=== PATIENT | male | born 1945 | race Caucasian/White ===

== ENCOUNTER → 2019-02-01 | Outpatient (CLI) | payer MEDICARE ==
[~2019-02-01] MED LIST: AMLO5; CEPH500 PO; TERA5
== END | disposition home or self-care (01) ==
LOC: LAB SHORT 11:15 → PLD 11:15
DX: C44.219 Basal cell carcinoma of skin of left ear and external auricular canal (principal)
CPT/HCPCS: 88305

== ENCOUNTER → 2019-03-02 | Outpatient (CLI) | payer MEDICARE | END | disposition home or self-care (01) | LOC: LAB SHORT 15:19 → PLD 15:19 | DX: C44.219 Basal cell carcinoma of skin of left ear and external auricular canal (principal) | CPT/HCPCS: 88305 ==

== ENCOUNTER 2020-04-05 09:40 | Day surgery (SDC) | payer MEDICARE, BC ==
[~2020-04-05] VITALS: Ht 180.3 cm; Wt 75.5 kg
[~2020-04-05 09:40] MED LIST changes: +Atenolol50 MG; +Diflucan100 MG PO; +HYDCHL25
--- NOTE | 2020-04-05 10:32 | NUR ---
04/05/20 1032 BERTHA CESAR ONE ATTEMPT BY AYANNA UNSUCCESSFUL ONE ATTEMPT BY RN SUCCESSFUL IN RFA PT TOW
--- NOTE | 2020-04-05 19:00 | NUR ---
04/05/201899 Odilia Portillo PT. COUGHING OFF & ON AFTER PROCEDURE. PER PT. & PT. DOES THIS AT HOME. LUNGS CLEAR.
--- NOTE | 2020-04-05 19:03 | NUR ---
04/05/201902 Odilia Portillo PER DR. OCAMPO ATTEMPTED WITH SAVORY 5 BUT UNSURE HOW FAR DIALATOR GOT. PT. WILL NEED TO BE RESCHEDULED WITH ANESTHESIA PER DR. OCAMPO.
== END 2020-04-05 12:58 | disposition home or self-care (01) ==
LOC: ORSCSDS 09:40
PROVIDERS: Internal Medicine Gastroenterology
PROC: 0D758ZZ Dilation of Esophagus, Via Natural or Artificial Opening Endoscopic (ICD-10-PCS; principal; 2020-04-05 11:00)
DX: R10.13 Epigastric pain (principal); R63.4 Abnormal weight loss; Z87.891 Personal history of nicotine dependence; I10 Essential (primary) hypertension; K21.9 Gastro-esophageal reflux disease without esophagitis; Z79.899 Other long term (current) drug therapy; Z20.828 Contact with and (suspected) exposure to other viral communicable diseases
CPT/HCPCS: J2310; J2704; J3010; J7120; U0003

== ENCOUNTER 2020-04-12 10:35 | Day surgery (SDC) | payer MEDICARE, BC ==
[~2020-04-12] VITALS: Ht 180.3 cm; Wt 76.1 kg
--- NOTE | 2020-04-12 13:23 | NUR ---
04/12/[address] & DR. OCAMPO NOTIFIED OF PT. WITH RIGHT SIDE OF LUNGS WITH INSPIRATORY & EXPIRATORY WHEEZES & PT. DENIES SOB. PER DR. DEAL IF ROOM IS READY FOR PROCEDURE NO NEED TO GIVE NEBULIZER TREATMENT.
--- NOTE | 2020-04-12 13:27 | NUR ---
04/12/20 1327 Odilia Portillo GASTROGRAFFIN GIVEN VIA SCOPE FOR FLUOROSCOPY, 5MLS USED.
--- NOTE | 2020-04-12 13:37 | NUR ---
04/12/20 8044 Odilia Portillo WHEN ASKED PT. IF HE HAD ANY PAIN OR SORETHROAT, PT. VERBALIZES JUST FEELING DRY & PT. DRINKING PEPSI VERBALIZING IT FEELS GOOD ON HIS THROAT.
== END 2020-04-12 13:15 | disposition home or self-care (01) ==
LOC: ORSCSDS 10:35
PROVIDERS: Internal Medicine Gastroenterology
PROC: 0D758ZZ Dilation of Esophagus, Via Natural or Artificial Opening Endoscopic (ICD-10-PCS; principal; 2020-04-12 12:00)
DX: K21.9 Gastro-esophageal reflux disease without esophagitis (principal); K22.2 Esophageal obstruction; R13.10 Dysphagia, unspecified; I10 Essential (primary) hypertension; Z79.899 Other long term (current) drug therapy
CPT/HCPCS: J2704; J7120

== ENCOUNTER 2021-05-17 16:50 | Emergency (ER) | payer MEDICARE, BC ==
[~2021-05-17] VITALS: Ht 180.3 cm; Wt 79.4 kg
[2021-05-17] MEDS ORDERED: OMEP20ER PO (17:34)
[2021-05-17 17:35] LABS: BASOPHILS ABSOLUTE AUTO 0.06 K/mm3 (0.00-0.23); BASOPHILS PERCENT AUTO 0 % (0-2); EOSINOPHILS ABSOLUTE AUTO 0.11 K/mm3 (0.00-0.68); EOSINOPHILS PERCENT AUTO 1 % (0-6); Hematocrit 40.7 % (37.0-53.0); Hemoglobin 13.9 g/dL (13.5-17.5); IMMATURE GRAN ABSOLUTE AUTO 0.08 K/mm3 (0.00-0.10); IMMATURE GRAN PERCENT AUTO 1 % (0-1); LYMPHOCYTES PERCENT AUTO 12 % (21-46); MONOCYTES ABSOLUTE AUTO 2.45 K/mm3 (0.16-1.47); MONOCYTES PERCENT AUTO 15 % (4-13); Mean Corpuscular HGB Conc 34.2 g/dL (31.5-36.5); Mean Corpuscular Volume 94 fL (80-100); Mean Platelet Volume 9.6 fL (9.1-12.4); NEUTROPHILS ABSOLUTE AUTO 11.94 K/mm3 (1.96-9.15); NEUTROPHILS PERCENT AUTO 72 % (41-73); Platelet Count 186 K/mm3 (150-400); RDW Coefficient Variation 11.9 % (11.7-14.2); RDW Standard Deviation 41.5 fL (35.1-46.3); Red Blood Cell Count 4.35 M/mm3 (4.30-5.90); White Blood Cell Count 16.54 K/mm3 (4.00-11.30)
[2021-05-17 17:46] LABS: Alanine Aminotransfer (ALT/SGP 20 U/L (12-78); Albumin, Blood 3.7 g/dL (3.4-5.0); Albumin/Globulin Ratio 0.9 (0.8-1.8); Alk Phos 78 U/L (50-136); Anion Gap 9 mmol/L (6-16); Aspartate Aminotrans (AST/SGOT 20 U/L (12-37); Bilirubin, Total 0.6 mg/dL (0.1-1.0); Blood Urea Nitrogen 14 mg/dL (8-24); CO2, Blood 24 mmol/L (21-32); Calcium, Blood 8.8 mg/dL (8.5-10.1); Chloride, Blood 94 mmol/L (98-108); Globulin, Blood 4.2 g/dL (2.2-4.0); Glomerular Filtration Rate >60 (60-); Glucose, Blood 108 mg/dL (70-99); Potassium, Blood 3.9 mmol/L (3.5-5.5); Sodium, Blood 127 mmol/L (136-145); Total Protein, Blood 7.9 g/dL (6.4-8.2); Troponin I <0.015 ng/mL (0.000-0.040)
[2021-05-17] MEDS ORDERED: CEFP200 PO (20:10)
== END 2021-05-17 20:14 | disposition left against medical advice (07) ==
LOC: ER 16:50
PROVIDERS: Physician Assistant
DX: J18.9 Pneumonia, unspecified organism (principal); R04.2 Hemoptysis; I10 Essential (primary) hypertension
CPT/HCPCS: 31720; 71046; 71260; 80053; 83690; 83880; 84484; 85025; 87070; 87205; 93005; 93010; 96374; 99285-25; J0696; Q9967

== ENCOUNTER 2024-02-18 14:49 | Inpatient (IN) | payer MEDICARE, BC ==
[~2024-02-18] VITALS: Ht 177.8 cm; Wt 70.4 kg
[~2024-02-18 14:49] MED LIST changes: -Atenolol50 MG; +Atenolol50 MG PO; +CEFP200 PO; +OMEP20ER PO
[2024-02-18 15:24] LABS: BASOPHILS ABSOLUTE AUTO 0.07 K/mm3 (0.00-0.23); BASOPHILS PERCENT AUTO 0 % (0-2); EOSINOPHILS ABSOLUTE AUTO 0.01 K/mm3 (0.00-0.68); EOSINOPHILS PERCENT AUTO 0 % (0-6); Hematocrit 39.7 % (37.0-53.0); Hemoglobin 13.5 g/dL (13.5-17.5); IMMATURE GRAN ABSOLUTE AUTO 0.25 K/mm3 (0.00-0.10); IMMATURE GRAN PERCENT AUTO 1 % (0-1); LYMPHOCYTES ABSOLUTE AUTO 1.25 K/mm3 (0.84-5.20); LYMPHOCYTES PERCENT AUTO 4 % (21-46); MONOCYTES ABSOLUTE AUTO 5.54 K/mm3 (0.16-1.47); MONOCYTES PERCENT AUTO 20 % (4-13); Mean Corpuscular HGB 30.3 pg (26.0-34.0); Mean Corpuscular Volume 89 fL (80-100); Mean Platelet Volume 9.2 fL (9.1-12.4); NEUTROPHILS ABSOLUTE AUTO 21.15 K/mm3 (1.96-9.15); NEUTROPHILS PERCENT AUTO 75 % (41-73); Platelet Count 258 K/mm3 (150-400); RDW Coefficient Variation 13.7 % (11.7-14.2); RDW Standard Deviation 44.9 fL (35.1-46.3); Red Blood Cell Count 4.46 M/mm3 (4.30-5.90); White Blood Cell Count 28.27 K/mm3 (4.00-11.30)
[2024-02-18 15:47] LABS: Albumin, Blood 2.5 g/dL (3.4-5.0); Albumin/Globulin Ratio 0.5 (0.8-1.8); Bilirubin, Total 0.9 mg/dL (0.1-1.0); Bun/Creatinine Ratio 31.2 (12.0-20.0); Calcium, Blood 9.4 mg/dL (8.5-10.1); Creatinine, Blood 0.77 mg/dL (0.60-1.20); Globulin, Blood 4.7 g/dL (2.2-4.0); Potassium, Blood 3.5 mmol/L (3.5-5.5); Total Protein, Blood 7.2 g/dL (6.4-8.2)
[2024-02-18] MEDS ORDERED: Piperacillin/Tazobactam Sod 4.5 GM in NS 100 ML IV ONE (16:35)
[2024-02-18] MEDS ORDERED: NS 1,000 ML IV SCH (16:35)
[2024-02-18] MEDS ORDERED: FentaNYL Citrate 50 MCG/ML 2 ML Injection IV PRN (18:00)
[2024-02-18] MEDS ORDERED: Lactated Ringer's 1,000 ML IV SCH (18:00)
[2024-02-18] MEDS ORDERED: Ondansetron HCl 2 MG / ML 2ML Vial IV PRN (18:00)
[2024-02-18] MEDS ORDERED: Ipratropium/Albuterol SulF 2.5-0.5MG/3 ML Amp INH ONE (18:00)
[2024-02-18] MEDS ORDERED: Ipratropium/Albuterol SulF 2.5-0.5MG/3 ML Amp INH SCH (18:00)
[2024-02-18] MEDS ORDERED: HydrALAZINE HCl 20 MG / ML 1ML Vial IV PRN (18:00)
[2024-02-18 21:20] VITALS: BP 154/93
[2024-02-18] MEDS ORDERED: THERA-D2000 UNIT PO (21:33)
[2024-02-19] MEDS ORDERED: Piperacillin/Tazobactam Sod 3.375 GM in NS 100 ML IV SCH
[2024-02-19 02:57] VITALS: BP 127/51
[2024-02-19 05:07] LABS: BASOPHILS ABSOLUTE AUTO 0.06 K/mm3 (0.00-0.23); BASOPHILS PERCENT AUTO 0 % (0-2); EOSINOPHILS ABSOLUTE AUTO 0.03 K/mm3 (0.00-0.68); EOSINOPHILS PERCENT AUTO 0 % (0-6); Hematocrit 34.8 % (37.0-53.0); Hemoglobin 11.6 g/dL (13.5-17.5); IMMATURE GRAN ABSOLUTE AUTO 0.17 K/mm3 (0.00-0.10); IMMATURE GRAN PERCENT AUTO 1 % (0-1); LYMPHOCYTES PERCENT AUTO 5 % (21-46); MONOCYTES ABSOLUTE AUTO 4.45 K/mm3 (0.16-1.47); MONOCYTES PERCENT AUTO 20 % (4-13); Mean Corpuscular HGB 30.2 pg (26.0-34.0); Mean Corpuscular HGB Conc 33.3 g/dL (31.5-36.5); Mean Corpuscular Volume 91 fL (80-100); Mean Platelet Volume 9.5 fL (9.1-12.4); NEUTROPHILS ABSOLUTE AUTO 16.61 K/mm3 (1.96-9.15); NEUTROPHILS PERCENT AUTO 74 % (41-73); Platelet Count 257 K/mm3 (150-400); RDW Coefficient Variation 13.8 % (11.7-14.2); RDW Standard Deviation 45.5 fL (35.1-46.3); Red Blood Cell Count 3.84 M/mm3 (4.30-5.90); White Blood Cell Count 22.42 K/mm3 (4.00-11.30)
[2024-02-19 05:34] LABS: Albumin, Blood 2.1 g/dL (3.4-5.0); Albumin/Globulin Ratio 0.5 (0.8-1.8); Bilirubin, Total 0.8 mg/dL (0.1-1.0); Bun/Creatinine Ratio 29.9 (12.0-20.0); Calcium, Blood 8.9 mg/dL (8.5-10.1); Creatinine, Blood 0.8 mg/dL (0.60-1.20); Globulin, Blood 4.3 g/dL (2.2-4.0); Potassium, Blood 3.4 mmol/L (3.5-5.5); Total Protein, Blood 6.4 g/dL (6.4-8.2)
[2024-02-19] MEDS ORDERED: Pantoprazole Sodium 40 MG Injection IV SCH (06:00)
--- NOTE | 2024-02-19 06:28 | NUR ---
SHIFT SUMMARY PT ARRIVED TO FLOOR AT 2114 VIA WHEELCHAIR FROM ER. REPORT FROM FELIZ GENTILE. PT ARRIVED ON RA, INDEPENDENTLY TRANSFERRED TO HOSPITAL BED. VSS, A&O X4, ABLE TO MAKE NEEDS KNOWN. WITH PT AT BEDSIDE. PT ORIENTED TO ROOM AND CALL LIGHT. MADE COMFORATBLE. ABX AND IVF PER EMAR. SKIN INTACT, NO CONCERNS. PT A&O X4, COOPERATIVE WITH CARE. VSS T/O SHIFT; SBP 120 -140'S, HR IN 100'S, AFEBRILE, SPO2 WNL ON RA. LS WITH INSPIRATORY WHEEZES T/O. PT WITH OCCASSIONAL, PRODUCTIVE COUGH. NO ACUTE EVENTS OVERNIGHT. PT SBA TO RESTROOM TO VOID, URINE DARK NESSA IN COLOR. NO BM PER PT FOR "SEVERAL DAYS". PT REPORTS DECREASED APPETITE OVER LAST WEEK WITH LITTLE PO INTAKE D/T NAUSEA. PT CURRENTLY NPO PER ORDERS. NO EVENTS OF N/V THIS SHIFT. PT NOT COMPLAINING OF PAIN AND DECLINING PAIN MEDICATIONS AT THIS TIME. STATES PAIN IS MANAGEABLE AT THIS POINT. URINAL ALSO AT BEDSIDE WHICH PT IS USING INDEPENDENTLY. REPOSITIONS INDEPENDENTLY. ABLE TO MAKE NEEDS KNOWN, CALL LIGHT IN REACH. WILL UPDATE ONCOMING RN.
[2024-02-19 06:56] VITALS: BP 130/63
[2024-02-19] MEDS ORDERED: Enoxaparin 40 MG/0.4 ML SYR SC SCH (09:00)
[2024-02-19] MEDS ORDERED: Potassium Chloride 40 MEQ in NS 250 ML IV ONE (09:05)
--- NOTE | 2024-02-19 11:26 | NUR ---
DR GHOTRA IN TO SEE PT.
[2024-02-19] MEDS ORDERED: NS 250 ML IV PRN (13:35)
[2024-02-19 14:37] LABS: International Normalized Ratio 1.17; Prothrombin Time Results 12.4 Sec (9.7-11.5)
--- NOTE | 2024-02-19 16:18 | NUR ---
PT BACK FROM DRAIN PLACEMENT DRAINING PURULENT [place] DRAINAGE. PT TRANSFERRED SELF FROM WC TO BED. SECURED DRAIN TO BED. ICEWATER PROVIDED.
[2024-02-19 16:46] VITALS: BP 151/75
--- NOTE | 2024-02-19 17:08 | NUR ---
SUMMARY PT HAD URESEIL DRAIN PLACED TO RUQ THIS AFTERNOON. DRAINING MOJICA PURULENT DRAINAGE. PT RECEIVED K RIDER THIS SHIFT. ADVANCED TO CLEAR LIQUIDS WITH AN ORDER TO ADVANCE TOLERATED TO REGULAR DIET. PT'S SPOUSE HAS BEEN EMPTYING PATIENT'S URINAL, STATED HAS VOIDED 3 TIMES THIS SHIFT. CALL LIGHT IN REACH.
[2024-02-19 19:53] VITALS: BP 130/59
[2024-02-20 04:02] VITALS: BP 145/66
[2024-02-20 04:10] LABS: Hematocrit 32.8 % (37.0-53.0); Hemoglobin 10.7 g/dL (13.5-17.5); Mean Corpuscular HGB Conc 32.6 g/dL (31.5-36.5); Mean Corpuscular Volume 92 fL (80-100); Mean Platelet Volume 8.9 fL (9.1-12.4); Platelet Count 292 K/mm3 (150-400); RDW Coefficient Variation 13.7 % (11.7-14.2); RDW Standard Deviation 46.7 fL (35.1-46.3); Red Blood Cell Count 3.57 M/mm3 (4.30-5.90); White Blood Cell Count 14.11 K/mm3 (4.00-11.30)
[2024-02-20 04:26] LABS: Albumin, Blood 1.9 g/dL (3.4-5.0); Anion Gap 10 mmol/L (3-11); Blood Urea Nitrogen 14 mg/dL (8-24); Bun/Creatinine Ratio 19.8 (12.0-20.0); CO2, Blood 27 mmol/L (21-32); Calcium, Blood 7.8 mg/dL (8.5-10.1); Chloride, Blood 102 mmol/L (98-108); Creatinine, Blood 0.71 mg/dL (0.60-1.20); Glomerular Filtration Rate 93 (60-); Glucose, Blood 101 mg/dL (70-99); Magnesium, Blood 1.9 mg/dL (1.6-2.4); Phosphorus, Blood 2.7 mg/dL (2.5-4.9); Potassium, Blood 3.1 mmol/L (3.5-5.5); Sodium, Blood 136 mmol/L (136-145)
--- NOTE | 2024-02-20 04:59 | NUR ---
SHIFT SUMMARY NO ACUTE CHANGES TO REPORT OVERNIGHT, PT HAS RESTED T/O THE NIGHT. PT DENIES PAIN. URESIL DRAIN IN PLACE, PATENT WITH PURULENT DISCHARGE. PT TOLERATING PO INTAKE. VITALS ARE STABLE. IV ANTIBIOTICS CONTINUED. PLAN OF CARE REMAINS UNCHANGED. BED IN LOWEST POSITON, CALL LIGHT WITHIN REACH.
[2024-02-20 07:28] VITALS: BP 162/67
[2024-02-20] MEDS ORDERED: HYDCHL25 PO (09:14)
[2024-02-20] MEDS ORDERED: OMEP20ER PO (09:14)
[2024-02-20] MEDS ORDERED: Potassium Chloride 40 MEQ in NS 250 ML IV ONE (11:20)
[2024-02-20 14:46] VITALS: BP 154/69
--- NOTE | 2024-02-20 17:47 | NUR ---
SUMMARY NO ACUTE CHANGES T/O SHIFT. PT AMBULATED TO RESTROOM SEVERAL TIMES AND VOIDED AND HAD BMS. URESIL PUTTING OUT THICK MOJICA FLUID. PT DENIES ANY NEEDS AT THIS TIME. CALL LIGHT IN REACH.
[2024-02-20 19:21] VITALS: BP 157/71
[2024-02-21 02:06] VITALS: BP 157/67
[2024-02-21 05:12] LABS: Hematocrit 31.8 % (37.0-53.0); Hemoglobin 10.4 g/dL (13.5-17.5); Mean Corpuscular HGB 30.2 pg (26.0-34.0); Mean Corpuscular HGB Conc 32.7 g/dL (31.5-36.5); Mean Corpuscular Volume 92 fL (80-100); Mean Platelet Volume 8.9 fL (9.1-12.4); Platelet Count 326 K/mm3 (150-400); RDW Coefficient Variation 13.8 % (11.7-14.2); RDW Standard Deviation 47.3 fL (35.1-46.3); Red Blood Cell Count 3.44 M/mm3 (4.30-5.90); White Blood Cell Count 10.48 K/mm3 (4.00-11.30)
[2024-02-21 05:44] LABS: Albumin, Blood 1.9 g/dL (3.4-5.0); Albumin/Globulin Ratio 0.6 (0.8-1.8); Bilirubin, Total 0.3 mg/dL (0.1-1.0); Bun/Creatinine Ratio 10.7 (12.0-20.0); Calcium, Blood 7.8 mg/dL (8.5-10.1); Creatinine, Blood 0.65 mg/dL (0.60-1.20); Globulin, Blood 3.4 g/dL (2.2-4.0); Potassium, Blood 3.2 mmol/L (3.5-5.5); Total Protein, Blood 5.3 g/dL (6.4-8.2)
--- NOTE | 2024-02-21 07:15 | NUR ---
SHIFT SUMMARY PT A&O X4, PLEASANT AND COOPERATIVE WITH CARE. VSS; SBP 150'S, AFEBRILE, HR IN 80 - 90'S, SPO2 94 - 96% ON RA. OF NOTE, PT O2 DESATTING TO MID 80'S WHILE ASLEEP, BUT DOES NOT SUSTAIN VERY LONG. PT LS CONTINUE TO BE COARSE AND INSPIRATORY AND EXPIRATORY WHEEZES NOTED T/O. CONTINUES WITH PRODUCTIVE COUGH. NO EVENTS THIS SHIFT. PT RESTED WELL. AMBULATING INDEPENDENTLY TO RESTROOM OR USING URINAL AT BEDSIDE INDEPENDENTLY; WITH 550 MLS OUT THIS SHIFT. TOLERATING PO INTAKE. IVF AND ABX PER EMAR. URASIL IN PLACE TO RIGHT QUADRANT WITH 75 MLS OF [place], PURULENT DRAINAGE OUT THIS SHIFT. ABLE TO MAKE NEEDS KNOWN. CALL LIGHT IN REACH. WILL UPDATE ONCOMING RN.
[2024-02-21 07:19] VITALS: BP 178/75
[2024-02-21] MEDS ORDERED: Potassium Chloride 20 MEQ/15 ML UDC PO ONE (12:55)
[2024-02-21 14:00] VITALS: BP 155/80
--- NOTE | 2024-02-21 15:13 | NUR ---
SHIFT SUMMARY; GALLBLADDER DRAIN WAS ACCIDETNLY REMOVED THIS AM WHEN PATIENT WAS AMBULATING TO BATHROOM. ORDERED STAT CT AND DECISION NOT TO REPLACE TUBE. PATIENT WILL STAY LAURA MORE NIGHT AND MORE THAN LIKELY DC IN THE AM IF EVERYTHING OK. THIS RN CHECKING ON WOUND SITE REPEATEDLY DURING DAY AND NO DISTENTION OR SIGNS OF BLEEDING ARE NOTED. PATIENT DENIES ANY PAIN DURING DAY AND SAYS HE IS SLIGHTLY UNCOMFORTABLE BUT NOT IN PAIN. SPOUSE REMAINS AT BEDSIDE. PATIENT INDEPENDANT IN ROOM TO BATHROOM. USES CALL LIGHT APPROPRIATELY AND HAS PLEASANT AFFECT. WILL CONTINUE TO MONITOR THIS PATIENT CLOSELY FOR ANY WANTS OR NEEDS.
[2024-02-21 19:40] VITALS: BP 168/90
[2024-02-22 04:39] VITALS: BP 157/72
--- NOTE | 2024-02-22 04:39 | NUR ---
SHIFT SUMMARY PT COOPERATIVE AND PLEASANT. WOUND DRAIN WAS ACCIDENTALLY PULLED YESTERDAY. WOUND COVERED WITH 4X4 AND TAPE. WOUND CDI. BED IS IN LOWEST POSITION AND CALL LIGHT IS WITHIN HIS REACH. WILL CONTINUE TO MONITOR.
[2024-02-22 05:24] LABS: Hematocrit 33.6 % (37.0-53.0); Hemoglobin 11.1 g/dL (13.5-17.5); Mean Corpuscular HGB 30.3 pg (26.0-34.0); Mean Corpuscular Volume 92 fL (80-100); Mean Platelet Volume 9.1 fL (9.1-12.4); Platelet Count 394 K/mm3 (150-400); RDW Coefficient Variation 13.9 % (11.7-14.2); RDW Standard Deviation 47.2 fL (35.1-46.3); Red Blood Cell Count 3.66 M/mm3 (4.30-5.90); White Blood Cell Count 13.52 K/mm3 (4.00-11.30)
[2024-02-22 05:46] LABS: Albumin/Globulin Ratio 0.6 (0.8-1.8); Bilirubin, Total 0.3 mg/dL (0.1-1.0); Creatinine, Blood 0.63 mg/dL (0.60-1.20); Globulin, Blood 3.5 g/dL (2.2-4.0); Potassium, Blood 3.6 mmol/L (3.5-5.5); Total Protein, Blood 5.5 g/dL (6.4-8.2)
[2024-02-22 05:57] LABS: BAND PERCENT MAN 5 % (0-8); BASOPHILS PERCENT MAN 0 % (0-2); EOSINOPHILS ABSOLUTE MAN 0.13 K/mm3 (0.00-0.68); EOSINOPHILS PERCENT MAN 1 % (0-6); LYMPHOCYTES % ATYPICAL MANUAL 2 % (0-0); LYMPHOCYTES ABSOLUTE MAN 1.08 K/mm3 (0.84-5.20); LYMPHOCYTES PERCENT MAN 6 % (21-46); MONOCYTES ABSOLUTE MAN 1.35 K/mm3 (0.16-1.47); MONOCYTES PERCENT MAN 10 % (4-13); MYELOCYTE ABSOLUTE MAN 0.13 K/mm3 (0.00-0.00); MYELOCYTE PERCENT MAN 1 % (0-0); NEUTROPHILS ABSOLUTE MAN 10.81 K/mm3 (1.96-9.15); SEG NEUTROPHILS PERCENT MAN 75 % (41-73); TOTAL CELLS COUNTED 100
[2024-02-22 07:40] VITALS: BP 172/75
[2024-02-22] MEDS ORDERED: Cholecalciferol 1000 Unit Tablet (=25MCG) PO SCH (09:00)
[2024-02-22] MEDS ORDERED: Atenolol 50 MG Tab PO SCH (09:00)
[2024-02-22] MEDS ORDERED: LevoFLOXacin 500 MG Tab PO SCH (11:00)
[2024-02-22] MEDS ORDERED: LEVFLO500 PO (11:26)
[2024-02-22] MEDS ORDERED: METR500 PO (11:28)
[2024-02-22] MEDS ORDERED: MetroNIDAZOLE 500 MG Tab PO SCH (12:00)
--- NOTE | 2024-02-22 12:15 | NUR ---
DISCHARGE SUMMARY S/P ACUTE GUILHERME, PT GIVEN ABX TO GO HOME WITH AND WILL FOLLOW UP WITH GEN SURGERY IN 1 MONTH. DISCUSSED DISCHARGE INSTRUCTIONS WITH HIM AND HIS INCLUDING HOME CARE, MEDICATIONS, AND FOLLOW UP APPOINTMENTS, MEDICATIOONS FAXED TO [facility] IN [place]. NO QUESTIONS AT THIS TIME, ESCORTED OUT VIA WC TO PRIVATE AUTO TO GO HOME.
== END 2024-02-22 12:10 | disposition home or self-care (01) | DRG 872 ==
LOC: ER 14:49 → SURS 17:57
PROVIDERS: Internal Medicine; Nurse Practitioner Acute Care; Physician Assistant; Surgery; ADMIT Internal Medicine
PROC: 0F9430Z Drainage of Gallbladder with Drainage Device, Percutaneous Approach (ICD-10-PCS; principal; 2024-02-18)
PROC: 3E03329 Introduction of Other Anti-infective into Peripheral Vein, Percutaneous Approach (ICD-10-PCS; 2024-02-18)
DX: A41.9 Sepsis, unspecified organism (principal); K81.0 Acute cholecystitis; K82.A2 Perforation of gallbladder in cholecystitis; E87.1 Hypo-osmolality and hyponatremia; E87.6 Hypokalemia; I10 Essential (primary) hypertension; K21.9 Gastro-esophageal reflux disease without esophagitis; Z79.899 Other long term (current) drug therapy; Z87.891 Personal history of nicotine dependence; Z98.890 Other specified postprocedural states
CPT/HCPCS: 36415; 49405; 71045; 74160; 74177; 80053; 80069; 83605; 83735; 85025; 85027; 85610; 85730; 87040; 87070; 87075; 87076; 87077; 87185; 87186; 87205; 94640; 94664; 94760; 94762; 96365; 99285-25; A9270; J1650; J2470; J2543; J3480; J7030; J7050; J7120; Q9967

== ENCOUNTER 2024-04-24 07:35 | Day surgery (SDC) | payer MEDICARE, BC ==
[~2024-04-24] VITALS: Ht 175.3 cm; Wt 68.9 kg
[2024-04-24] VITALS (15 sets, daily range): BP systolic 155–186; BP diastolic 60–79
[~2024-04-24 07:35] MED LIST changes: +HYDCHL25 PO; +LEVFLO500 PO; +METR500 PO; +PROBIOTIC1 EA15; +THERA-D2000 UNIT PO
[2024-04-24] MEDS ORDERED: Dexamethasone Sod Phos 10 MG/ML 1ML VIAL ONE (07:47)
[2024-04-24] MEDS ORDERED: Rocuronium Bromide 10 MG/ML 5ML Injection IV ONE ×3 (07:47→10:15)
[2024-04-24] MEDS ORDERED: Ondansetron HCl 2 MG / ML 2ML Vial ONE (07:47)
[2024-04-24] MEDS ORDERED: FentaNYL Citrate 50 MCG/ML 5 ML Injection ONE (07:47)
[2024-04-24] MEDS ORDERED: propofoL 20 ML IV ONE (07:47)
[2024-04-24] MEDS ORDERED: Lactated Ringer's 1,000 ML IV SCH (08:00)
[2024-04-24] MEDS ORDERED: CeFAZolin Sodium 2,000 MG in NS 100 ML IV SCH (08:00)
--- NOTE | 2024-04-24 08:01 | NUR ---
Ambulatory in Day Surgery History, Chart, Medications and Allergies reviewed before start of procedure. Pre-Op teaching done. Pt verbalizes understanding. Patient States Post-Procedure ride home has been arranged.
[2024-04-24] MEDS ORDERED: CeFAZolin Sodium 2,000 MG VIAL ONE (08:24)
--- NOTE | 2024-04-24 08:37 | NUR ---
PATIENT REMOVED WEDDING RING AND GAVE TO EAN.
[2024-04-24] MEDS ORDERED: Bupivacaine 0.5% HCl 5 MG/ML 30MLVIAL ONE (09:05)
[2024-04-24] MEDS ORDERED: Sugammadex Sodium 200 MG/2ML SDV (100 MG/ML) ONE (09:54)
[2024-04-24] MEDS ORDERED: HYDROcodone 5-APAP 325 TAB PO PRN (11:45)
[2024-04-24] MEDS ORDERED: FentaNYL Citrate 50 MCG/ML 2 ML Injection ONE (12:09)
[2024-04-24] MEDS ORDERED: Ketorolac Tromethamine 30mg Vial ONE (12:09)
--- NOTE | 2024-04-24 12:44 | NUR ---
REPORT RECEIVED FROM VETO PIPER. VSS. PT ON RA. PT ABLE TO REPOSITION SELF IN BED. PT REQUESTING PO FLUIDS AND TOLERATING THEM WELL. PT DENIES PAIN, NAUSEA OR OTHER DISCOMFORTS. PT HAS 3 INCISION SITES TO ABD COVERED WITH STERI STRIP THAT ARE C/D/I. PT ALSO HAS DEEP DRAIN TO SUCTION WITH SCANT RED DRAINAGE NOTED IN BULB. DEEP DRAIN DRESSING APPEARS TO BE LEAKING, DRESSING CHANGED TO REASSESS.
--- NOTE | 2024-04-24 13:40 | NUR ---
Patient up to Ambulate independently. Gait steady. VSS AND CONSISTENT WITH PT BASELINE. PT HAS NO COMPLAINTS AND VERBALIZES READINESS TO GO HOME. Discharge instructions reviewed with patient. Patient verbalizes understanding. Copy given to patient to take home. Dressing to procedure site clean, dry, intact with no visible drainage, swelling, erythema or bruising noted. 4X4 GAUZE/TAPE APPLIED TO DRAIN DRESSING A PRESSURE DRESSING PER DR GHOTRA. Patient States Post-Procedure ride home has been arranged. Discharged via wheelchair to private car for ride home. PT BELONGINGS RETURNED TO PT.
== END 2024-04-24 13:42 | disposition home or self-care (01) ==
LOC: ORSCMMR 07:35 → ORD 09:00 → ORSCMMR 09:00
PROVIDERS: Surgery
PROC: 0FT44ZZ Resection of Gallbladder, Percutaneous Endoscopic Approach (ICD-10-PCS; principal; 2024-04-24 09:00)
PROC: BF031ZZ Plain Radiography of Gallbladder and Bile Ducts using Low Osmolar Contrast (ICD-10-PCS; principal; 2024-04-24 09:00)
DX: K80.10 Calculus of gallbladder with chronic cholecystitis without obstruction (principal); K66.0 Peritoneal adhesions (postprocedural) (postinfection); I10 Essential (primary) hypertension; K21.9 Gastro-esophageal reflux disease without esophagitis; Z79.899 Other long term (current) drug therapy; Z87.891 Personal history of nicotine dependence
CPT/HCPCS: 74300; 88304; J0690; J1100; J1885; J2405; J2704; J3010; J7120

== ENCOUNTER 2025-06-18 10:21 | Emergency (ER) | payer MEDICARE, BC ==
[~2025-06-18] VITALS: Ht 177.8 cm; Wt 63.5 kg
[2025-06-18] MEDS ORDERED: NS 1,000 ML IV SCH (10:30)
[2025-06-18] MEDS ORDERED: Ondansetron HCl 2 MG / ML 2ML Vial IV ONE (13:15)
[2025-06-18 13:21] LABS: BASOPHILS ABSOLUTE AUTO 0.05 K/mm3 (0.00-0.23); BASOPHILS PERCENT AUTO 0 % (0-2); EOSINOPHILS ABSOLUTE AUTO 0.03 K/mm3 (0.00-0.68); EOSINOPHILS PERCENT AUTO 0 % (0-6); Hematocrit 39.1 % (37.0-53.0); Hemoglobin 12.6 g/dL (13.5-17.5); IMMATURE GRAN ABSOLUTE AUTO 0.09 K/mm3 (0.00-0.10); IMMATURE GRAN PERCENT AUTO 1 % (0-1); LYMPHOCYTES ABSOLUTE AUTO 1.27 K/mm3 (0.84-5.20); LYMPHOCYTES PERCENT AUTO 7 % (21-46); MONOCYTES ABSOLUTE AUTO 1.41 K/mm3 (0.16-1.47); MONOCYTES PERCENT AUTO 8 % (4-13); Mean Corpuscular HGB Conc 32.2 g/dL (31.5-36.5); Mean Corpuscular Volume 90 fL (80-100); NEUTROPHILS ABSOLUTE AUTO 15.63 K/mm3 (1.96-9.15); NEUTROPHILS PERCENT AUTO 85 % (41-73); NRBC ABSOLUTE 0.00 K/mm3 (0.00-0.02); NRBC Auto 0.0 /100 WBC (0.0-0.2); Platelet Count 215 K/mm3 (150-400); RDW Coefficient Variation 13.8 % (11.7-14.2); RDW Standard Deviation 45.1 fL (35.1-46.3)
[2025-06-18 13:39] LABS: Alanine Aminotransfer (ALT/SGP 22.0 U/L (12-78); Albumin, Blood 3.2 g/dL (3.4-5.0); Albumin/Globulin Ratio 0.7 (0.8-1.8); Anion Gap 8.0 mmol/L (3-11); Aspartate Aminotrans (AST/SGOT 18.0 U/L (12-37); Bilirubin, Total 0.7 mg/dL (0.1-1.0); Blood Urea Nitrogen 8.0 mg/dL (8-24); CO2, Blood 29.0 mmol/L (21-32); Calcium, Blood 9.6 mg/dL (8.5-10.1); Chloride, Blood 101.0 mmol/L (98-108); Creatinine, Blood 0.6 mg/dL (0.60-1.20); Globulin, Blood 4.9 g/dL (2.2-4.0); Glucose, Blood 106.0 mg/dL (70-99); Potassium, Blood 4.1 mmol/L (3.5-5.5); Sodium, Blood 134.0 mmol/L (136-145); Total Protein, Blood 8.1 g/dL (6.4-8.2)
[2025-06-18 14:30] VITALS: BP 137/73
== END 2025-06-18 14:45 | disposition home or self-care (01) ==
LOC: ER 10:21
PROVIDERS: Emergency Medicine
DX: R09.A9 Foreign body sensation, other site (principal); E86.0 Dehydration; I10 Essential (primary) hypertension; Z87.891 Personal history of nicotine dependence; Z88.8 Allergy status to other drugs, medicaments and biological substances; Z79.899 Other long term (current) drug therapy; Z59.89 Other problems related to housing and economic circumstances
CPT/HCPCS: 70360; 71046; 80053; 85025; 99284-25; A9270; J2405; J7030